=== PATIENT | male | born 1945 | race Caucasian/White ===

== ENCOUNTER 2016-12-11 11:02 | Emergency (ER) | payer MEDICARE, OTHER ==
[~2016-12-11 11:02] MED LIST: ASPIRIN CHEWABL81 MG PO; CARAFATE1 GM PO; DILTIAZEM 12HR60 MG PO; GLUCOPHAGE1000 MG PO; LEVSIN TAB 00.125 MG PO; LISINOPRIL2.5 MG PO; LORTAB 7.5-3251 EACH PO; NEXIUM40 MG PO; PROTONIX40 MG PO; SIMVASTATIN40 MG PO; SYNTHROID88 MCG PO
[2016-12-11 13:43] LABS: HEMOGLOBIN 11.7 gm/dl (14.0-17.5); RED BLOOD COUNT 4.61 M/UL (4.20-5.50); WHITE BLOOD COUNT 5.5 K/UL (4.5-11.0)
[2016-12-11 14:01] LABS: BUN/CREATININE RATIO 26 (0-10)
== END 2016-12-11 17:36 | disposition home or self-care (01) ==
LOC: ER1 11:02
PROVIDERS: Family Medicine
DX: K21.9 Gastro-esophageal reflux disease without esophagitis (principal); E11.9 Type 2 diabetes mellitus without complications; Z87.891 Personal history of nicotine dependence; Z79.84 Long term (current) use of oral hypoglycemic drugs; Z79.899 Other long term (current) drug therapy
CPT/HCPCS: 36415; 71010; 80053; 82550; 82553; 83874; 84484; 85025; 93005; 99285

== ENCOUNTER 2017-01-19 13:33 | Observation (INO) | payer MEDICARE, OTHER ==
[~2017-01-19] VITALS: Ht 175.3 cm; Wt 74.6 kg
[2017-01-19 14:54] LABS: HEMOGLOBIN 10.6 gm/dl (14.0-17.5); RED BLOOD COUNT 4.11 M/UL (4.20-5.50); WHITE BLOOD COUNT 6.7 K/UL (4.5-11.0)
[2017-01-19 15:12] LABS: BUN/CREATININE RATIO 30 (0-10)
[2017-01-20 06:55] LABS: HEMOGLOBIN 10.4 gm/dl (14.0-17.5); RED BLOOD COUNT 4.05 M/UL (4.20-5.50); WHITE BLOOD COUNT 6.3 K/UL (4.5-11.0)
[2017-01-20 07:15] LABS: BUN/CREATININE RATIO 27 (0-10)
== END 2017-01-21 13:30 | disposition home or self-care (01) ==
LOC: ER1 13:33 → M/S 16:35 → ZEROF 16:35 → M/S 20:00
PROVIDERS: Emergency Medicine; ADMIT Emergency Medicine
DX: E87.5 Hyperkalemia (principal); E87.1 Hypo-osmolality and hyponatremia; E11.9 Type 2 diabetes mellitus without complications; E03.9 Hypothyroidism, unspecified; E87.2 Acidosis; T38.3X5A Adverse effect of insulin and oral hypoglycemic [antidiabetic] drugs, initial encounter; E78.5 Hyperlipidemia, unspecified; Z79.82 Long term (current) use of aspirin; Z79.891 Long term (current) use of opiate analgesic; Z79.899 Other long term (current) drug therapy; Z82.49 Family history of ischemic heart disease and other diseases of the circulatory system
CPT/HCPCS: 36415; 80048; 82962; 84132; 85025; 93005; 96374; 96375; 99285; G0378; J1815; J7030

== ENCOUNTER 2020-11-16 07:51 | Emergency (ER) | payer MEDICARE, OTHER ==
[~2020-11-16 07:51] MED LIST changes: +ABILIFY 2 MG TAB2 MG PO; +ALLEGRA ALLERG180 MG PO; +ANTIVERT 12.512.5 MG PO; +ARICEPT10 MG PO; +AUGMENTIN 875-1 EACH PO; +BUSPAR 10MG10 MG PO; +CATAPRES 0.1MG0.1 MG PO; +CEFUROXIME500 MG PO; +CIPRO HC OTIC S10 ML EARRT; +CITALOPRAM HBR20 MG PO; +CYANOCOBAL1000 MCG/1 INJ; +DESYREL 50 MG T50 MG PO; +FEROSUL325 MG PO; +FIORICET TAB1 EA PO; +KLONOPIN0.5 MG PO; +MAPAP325 MG PO; +MILK OF MA400 MG/5 M PO; +MOBIC15 MG PO; +NAPROXEN500 MG PO; +PROAIR DIGIHAL90 MCG INH; +REMERON15 M1 PO; -SYNTHROID88 MCG PO; +TORADOL 10 MG T10 MG PO; +VISTARIL25 MG PO; +VITAMIN C500 MG PO; +XANAX0.25 MG PO; +ZOCOR 40 MG TAB40 MG PO
[2020-11-16 09:36] LABS: HEMOGLOBIN 15.7 gm/dl (14.0-17.5); RED BLOOD COUNT 5.29 M/UL (4.20-5.50); WHITE BLOOD COUNT 6.4 K/UL (4.5-11.0)
[2020-11-16 10:04] LABS: BUN/CREATININE RATIO 36 (0-10)
[2020-12-05] MEDS ORDERED: SYNTHROID75 MCG PO (21:06)
[2020-12-05] MEDS ORDERED: METFORMIN HCL500 M2 PO (21:42)
== END 2020-11-16 15:20 | disposition home or self-care (01) ==
LOC: ER1 07:51
PROVIDERS: Nurse Practitioner
DX: R07.89 Other chest pain (principal); M79.10 Myalgia, unspecified site; I10 Essential (primary) hypertension; J44.9 Chronic obstructive pulmonary disease, unspecified; F03.90 Unspecified dementia, unspecified severity, without behavioral disturbance, psychotic disturbance, mood disturbance, and anxiety; Z87.19 Personal history of other diseases of the digestive system
CPT/HCPCS: 0240U; 36415; 71045; 80053; 82550; 82553; 83735; 83874; 84484; 85025; 99285

== ENCOUNTER 2020-12-27 11:48 | Observation (INO) | payer MEDICARE, OTHER ==
[~2020-12-27] VITALS: Ht 170.2 cm; Wt 76.3 kg
[~2020-12-27 11:48] MED LIST changes: +METFORMIN HCL500 M2 PO; +SYNTHROID75 MCG PO
[2020-12-27 12:56] LABS: HEMOGLOBIN 15.1 gm/dl (14.0-17.5); RED BLOOD COUNT 5.2 M/UL (4.20-5.50); WHITE BLOOD COUNT 6.7 K/UL (4.5-11.0)
[2020-12-27 13:12] LABS: BUN/CREATININE RATIO 26 (0-10)
[2020-12-27] MEDS ORDERED: PROAIR HFA8.5 GM INH (15:55)
[2020-12-27] MEDS ORDERED: FLOVENT DISKU250 MCG INH (17:25)
[2020-12-27] MEDS ORDERED: BENADRYL25 MG PO (17:38)
[2020-12-27] MEDS ORDERED: PROTONIX40 MG PO (21:37)
[2020-12-27] MEDS ORDERED: VITAMIN D325 MCG PO (21:41)
[2020-12-28 00:45] LABS: HEMOGLOBIN 15.4 gm/dl (14.0-17.5); RED BLOOD COUNT 5.23 M/UL (4.20-5.50); WHITE BLOOD COUNT 6.5 K/UL (4.5-11.0)
[2020-12-28 01:01] LABS: BUN/CREATININE RATIO 27 (0-10)
[2020-12-29] MEDS ORDERED: NITROGLYCERIN0.4 MG SL (11:39)
[2020-12-29] MEDS ORDERED: SYNTHROID88 MCG PO (11:39)
[2020-12-29] MEDS ORDERED: ATORVASTATIN CA20 MG PO (11:39)
[2020-12-29] MEDS ORDERED: KLONOPIN TAB 00.5 MG PO (16:11)
[2020-12-29] MEDS ORDERED: ASPERCREME LID1 EACH TP (17:54)
== END 2020-12-29 23:36 ==
LOC: ER1 11:48 → CDU 15:07 → MED SURG 4 15:07
PROVIDERS: Physician Assistant; ADMIT Internal Medicine
DX: R07.89 Other chest pain (principal); F03.90 Unspecified dementia, unspecified severity, without behavioral disturbance, psychotic disturbance, mood disturbance, and anxiety; E03.9 Hypothyroidism, unspecified; E11.9 Type 2 diabetes mellitus without complications; I25.10 Atherosclerotic heart disease of native coronary artery without angina pectoris; R59.1 Generalized enlarged lymph nodes; R53.1 Weakness; F41.9 Anxiety disorder, unspecified; K21.9 Gastro-esophageal reflux disease without esophagitis; D50.9 Iron deficiency anemia, unspecified; E53.8 Deficiency of other specified B group vitamins; E87.1 Hypo-osmolality and hyponatremia; I10 Essential (primary) hypertension; J44.9 Chronic obstructive pulmonary disease, unspecified; Z87.891 Personal history of nicotine dependence; Z98.890 Other specified postprocedural states; Z20.822 Contact with and (suspected) exposure to COVID-19; Z79.82 Long term (current) use of aspirin; Z79.84 Long term (current) use of oral hypoglycemic drugs; Z79.899 Other long term (current) drug therapy
CPT/HCPCS: ECHO; 36415; 71045; 80048; 80053; 82550; 82553; 82607; 82962; 83874; 83880; 84439; 84443; 84484; 85025; 85379; 93005; 93306; 94640; 94664; 94760; 96372; 96374; 97116-GP-CQ; 97162; 99285; G0378; J1650; Q9967; U0002

== ENCOUNTER 2021-02-05 15:31 | Inpatient (IN) | payer MEDICARE, OTHER ==
[~2021-02-05] VITALS: Ht 172.7 cm; Wt 77.3 kg
[~2021-02-05 15:31] MED LIST changes: +ASPERCREME LID1 EACH TP; +ATORVASTATIN CA20 MG PO; +BENADRYL25 MG PO; +FLOVENT DISKU250 MCG INH; +KLONOPIN TAB 00.5 MG PO; +NITROGLYCERIN0.4 MG SL; +PROAIR HFA8.5 GM INH; +SYNTHROID88 MCG PO; +VITAMIN D325 MCG PO
[2021-02-05 15:57] LABS: HEMOGLOBIN 14.9 gm/dl (14.0-17.5); RED BLOOD COUNT 5.17 M/UL (4.20-5.50); WHITE BLOOD COUNT 14.6 K/UL (4.5-11.0)
[2021-02-05 16:21] LABS: BUN/CREATININE RATIO 19 (0-10)
--- NOTE | 2021-02-06 03:40 | NUR ---
AFTER NOTIFICATION FOR PREVIOUS LOW BP, HIGH HR, TEMP AND PATIENT FEELING OF DOOM AND SMOTHERING, TRANSFERING TO ICU D/T UNABLE TO HANG NEOSYNEPHRINE ON PCU. DR. YOUNG STATES TO TRANSFER TO ICU. REPORT TO JACQUE STEPHEN.
[2021-02-06 04:42] LABS: WHITE BLOOD COUNT 11.3 K/UL (4.5-11.0)
[2021-02-06 04:43] LABS: HEMOGLOBIN 12.4 gm/dl (14.0-17.5); RED BLOOD COUNT 4.44 M/UL (4.20-5.50)
--- NOTE | 2021-02-07 03:06 | NUR ---
2330 SITTER AT BEDSIDE DT PT FREQUENTLY PULLING AT LINES. 0030 DR MELGAR NOTIFIED AND AWARE OF PT CURRENT BP AND MARKEL RATE. ORDERS FOR LEVO PLACED. GOAL MAP > 60. PT PULLED RECTAL TUBE OUT, LINEN CHANGED, RECTAL TUBE REPLACED. RECTAL TUBE DRAINING WITHOUT COMPLICATIONS.
[2021-02-07 04:38] LABS: WHITE BLOOD COUNT 8.7 K/UL (4.5-11.0)
[2021-02-07 04:39] LABS: HEMOGLOBIN 9.9 gm/dl (14.0-17.5); RED BLOOD COUNT 3.46 M/UL (4.20-5.50)
--- NOTE | 2021-02-07 06:21 | NUR ---
See paper chart for q15min VS.
[2021-02-07 14:05] LABS: ADENOVIRUS F 40/41 Not Detected (Negative); ASTROVIRUS Not Detected (Negative); CAMPYLOBACTER Not Detected (Negative); CLOSTRIDIUM DIFFICILE TOX A/B Not Detected (Negative); CRYPTOSPORIDIUM Not Detected (Negative); E.COLI 0157 Not Detected (Negative); ENTAMOEBA HISTOLYTICA Not Detected (Negative); ENTEROAGGREGATIVE E.COLI (EAEC Not Detected (Negative); ENTEROPATHOGENIC E.COLI (EPEC) Not Detected (Negative); ENTEROTOXIGENIC E.COLI (ETEC) Not Detected (Negative); GIARDIA LAMBLIA Not Detected (Negative); NOROVIRUS GI/GII Not Detected (Negative); PLESIOMONAS SHIGELLOIDES Not Detected (Negative); ROTOVIRUS A Not Detected (Negative); SALMONELLA Not Detected (Negative); SAPOVIRUS Not Detected (Negative); SHIG/ENTEROINVAS.ECOLI (EIEC) Not Detected (Negative); SHIGA-LIK TOX.PRO.E.COLI (STEC Not Detected (Negative); VIBRIO Not Detected (Negative); VIBRIO CHOLERAE Not Detected (Negative); YERSINIA ENTEROCOLITICA Not Detected (Negative)
[2021-02-07 17:05] LABS: BORDETELLA PARAPERTUSSIS Not Detected (Not Detectd); BORDETELLA PERTUSSIS Not Detected (Not Detectd); CHLAMYDIA PNEUMONIAE Not Detected (Not Detectd); CORONAVIRUS HKU1 Not Detected (Not Detectd); CORONAVIRUS NL63 Not Detected (Not Detectd); CORONAVIRUS OC43 Not Detected (Not Detectd); CORONOAVIRUS 229E Not Detected (Not Detectd); HUMAN METAPNEUMOVIRUS Not Detected (Not Detectd); HUMAN RHINOVIRUS/ENTEROVIRUS Not Detected (Not Detectd); INFLUENZA A Not Detected (Not Detectd); INFLUENZA B Not Detected (Not Detectd); MYCOPLASMA PNEUMONIAE Not Detected (Not Detectd); PARAINFLUENZA VIRUS 1 Not Detected (Not Detectd); PARAINFLUENZA VIRUS 2 Not Detected (Not Detectd); PARAINFLUENZA VIRUS 3 Not Detected (Not Detectd); PARAINFLUENZA VIRUS 4 Not Detected (Not Detectd); RESPIRATORY SYNCYTIAL VIRUS Not Detected (Not Detectd)
[2021-02-07 18:05] LABS: SARS-CoV-2 NOT DETECTED (Not Detectd)
[2021-02-08 05:29] LABS: HEMOGLOBIN 11.1 gm/dl (14.0-17.5); WHITE BLOOD COUNT 7.8 K/UL (4.5-11.0)
[2021-02-08 05:37] LABS: RED BLOOD COUNT 4.15 M/UL (4.20-5.50)
[2021-02-09 02:26] LABS: HEMOGLOBIN 10.3 gm/dl (14.0-17.5); RED BLOOD COUNT 3.74 M/UL (4.20-5.50)
[2021-02-09 02:28] LABS: WHITE BLOOD COUNT 4.6 K/UL (4.5-11.0)
[2021-02-10 03:06] LABS: HEMOGLOBIN 11.8 gm/dl (14.0-17.5)
[2021-02-10 03:07] LABS: RED BLOOD COUNT 4.24 M/UL (4.20-5.50); WHITE BLOOD COUNT 3.4 K/UL (4.5-11.0)
[2021-02-11 02:48] LABS: HEMOGLOBIN 11.1 gm/dl (14.0-17.5); RED BLOOD COUNT 3.96 M/UL (4.20-5.50); WHITE BLOOD COUNT 2.7 K/UL (4.5-11.0)
[2021-02-12 02:56] LABS: HEMOGLOBIN 10.9 gm/dl (14.0-17.5); RED BLOOD COUNT 3.96 M/UL (4.20-5.50)
[2021-02-12 02:58] LABS: WHITE BLOOD COUNT 3.7 K/UL (4.5-11.0)
[2021-02-13 03:33] LABS: HEMOGLOBIN 11.1 gm/dl (14.0-17.5); RED BLOOD COUNT 4.05 M/UL (4.20-5.50)
[2021-02-13 03:36] LABS: WHITE BLOOD COUNT 4.7 K/UL (4.5-11.0)
[2021-02-14 03:39] LABS: HEMOGLOBIN 11.3 gm/dl (14.0-17.5); RED BLOOD COUNT 4.06 M/UL (4.20-5.50); WHITE BLOOD COUNT 5.7 K/UL (4.5-11.0)
[2021-02-15 03:22] LABS: HEMOGLOBIN 11.4 gm/dl (14.0-17.5); RED BLOOD COUNT 4.13 M/UL (4.20-5.50); WHITE BLOOD COUNT 4.5 K/UL (4.5-11.0)
[2021-02-15 10:14] LABS: CREATININE, URINE 146.7 mg/dL (Not Estab.)
--- NOTE | 2021-02-15 15:40 | NUR ---
PT ARRIVED TO UNIT IN BED, ON 4L NC, PLACED NGT TO LWS WITH BROWN COLORED DRAINAGE, PLACED ON HEART MONITOR WITH HR 111, TEMP 100.0, F/C IN PLACE WITH CYNDI URINE, 20G IV TO LEFT FOREARM WITH POTASSIUM PHOSPHATE RUNNING AT 62ML/HR, LUNGS NOTED TO HAVE RHONCHI AND BOWEL SOUNDS PRESENT WITH ABDOMEN DISTENDED, WOUND VAC TO COCCYX, BILATERAL FEET WRAPPED IN KERLIX. WILL CONTINUE TO MONITOR
[2021-02-16 02:42] LABS: HEMOGLOBIN 11.1 gm/dl (14.0-17.5); RED BLOOD COUNT 3.95 M/UL (4.20-5.50)
[2021-02-17] MEDS ORDERED: VITAMIN D325 MCG PO (11:04)
[2021-02-17] MEDS ORDERED: IPRAT-ALBUT 0.5-3 ML NEB (11:04)
[2021-02-17] MEDS ORDERED: HUMALOG 10100 UNITS/ SC (11:04)
[2021-02-17] MEDS ORDERED: RANEXA500 MG PO (11:04)
--- NOTE | 2021-02-17 16:15 | NUR ---
REPORT CALLED TO HAILEE NGUYEN AT [facility], EMS HERE TO PICK HIM UP
== END 2021-02-17 16:15 | DRG 871 ==
LOC: ER1 15:31 → CCU 19:27 → CDU 19:27 → PROG CARE 19:27 → CCU 02-06 03:39 → PROG CARE 02-09 15:30
PROVIDERS: Emergency Medicine; Internal Medicine; Internal Medicine Nephrology; ADMIT Internal Medicine
DX: A41.9 Sepsis, unspecified organism (principal); R65.21 Severe sepsis with septic shock; J96.01 Acute respiratory failure with hypoxia; J18.9 Pneumonia, unspecified organism; N17.0 Acute kidney failure with tubular necrosis; E87.2 Acidosis; I47.2 Ventricular tachycardia; M62.82 Rhabdomyolysis; E87.3 Alkalosis; G93.49 Other encephalopathy; K56.7 Ileus, unspecified; R19.7 Diarrhea, unspecified; F03.90 Unspecified dementia, unspecified severity, without behavioral disturbance, psychotic disturbance, mood disturbance, and anxiety; E11.9 Type 2 diabetes mellitus without complications; E03.9 Hypothyroidism, unspecified; E87.6 Hypokalemia; R45.1 Restlessness and agitation; F41.9 Anxiety disorder, unspecified; K21.9 Gastro-esophageal reflux disease without esophagitis; J44.9 Chronic obstructive pulmonary disease, unspecified; D50.9 Iron deficiency anemia, unspecified; E53.8 Deficiency of other specified B group vitamins; R53.1 Weakness; Z20.822 Contact with and (suspected) exposure to COVID-19; E87.5 Hyperkalemia; E86.0 Dehydration; M60.9 Myositis, unspecified; I20.8 Other forms of angina pectoris; R07.89 Other chest pain; Z84.89 Family history of other specified conditions; Z87.891 Personal history of nicotine dependence; Z79.4 Long term (current) use of insulin
CPT/HCPCS: 0241U; 36415; 36600; 70450; 71045; 78452; 78580; 80048; 80053; 80202; 80307; 81001; 82009; 82043; 82270; 82436; 82550; 82553; 82570; 82803; 82962; 83605; 83690; 83735; 84100; 84132; 84133; 84156; 84300; 84439; 84443; 84484; 85025; 85027; 85379; 85610; 87040; 87449; 87507; 87633; 89050; 92526; 92610; 93017; 93970; 94640; 94660; 94664; 94760; 96365; 96372; 96375; 97110-GP-CQ; 97162; 97167; 97530-GP-CQ; 99291; A9502; A9540; G0480; J0692; J1644; J1650; J2060; J2185; J2270; J2370; J2785; J3370; J3475; J3480; J7030; J7060; J7070; P9047